=== PATIENT | male | born 1960 | race Two or more races ===

== ENCOUNTER 2025-04-02 18:33 | Inpatient (IN) | payer OTHER, MEDICAID ==
[2025-04-02] MEDS: SODIUM CHLORIDE 0.9% 1,000 ML IV SCH ×2 (00:45→21:15)
[2025-04-02] MEDS ORDERED: NITROGLYCERIN 0.4 MG SL TAB SL PRN ×3 (21:15→23:45)
[2025-04-02] MEDS ORDERED: MORPHINE SULFATE INJ 2 MG/ml SYRG IV PRN ×2 (21:15→23:45)
[2025-04-02] MEDS ORDERED: EZET10TA22 PO (21:34)
[2025-04-02] MEDS ORDERED: CLOP75TA28 PO (21:34)
[2025-04-02] MEDS ORDERED: DOCU-94 PO (21:34)
[2025-04-02] MEDS ORDERED: ASPI-543 PO (21:34)
[2025-04-02] MEDS ORDERED: FENO160T PO (21:34)
[2025-04-02] MEDS ORDERED: LEVO137T3 PO (21:34)
[2025-04-02] MEDS ORDERED: CHOL20007 PO (21:34)
[2025-04-02] MEDS ORDERED: HYDR-4902 PO (21:34)
[2025-04-02] MEDS ORDERED: METO-289 PO (21:34)
[2025-04-02] MEDS ORDERED: PANT40T PO (21:34)
[2025-04-02] MEDS ORDERED: CYCL-839 PO (21:34)
[2025-04-02] MEDS ORDERED: SIMV40TA18 PO (21:34)
[2025-04-02] MEDS ORDERED: ATOR40TA52 PO (21:34)
[2025-04-02] MEDS ORDERED: POTA-36 PO (21:34)
[2025-04-02] MEDS ORDERED: FURO40TA4 PO (21:34)
[2025-04-02 21:39] LABS: Hematocrit 42.9 % (41.0-53.0); Hemoglobin 14.1 g/dL (13.5-17.5); Mean Corpuscular Hemoglobin 29.1 pg (28.0-32.0); Mean Corpuscular Volume 88.4 fL (80.0-100.0); Nucleated Red Blood Cells % 0.0 %
[2025-04-02] MEDS ORDERED: HYDROmorphone HCL 2 MG/ML VL/or syr IV PRN (21:45)
[2025-04-02] MEDS ORDERED: HYDROcodone-ACET 5/325MG TAB PO PRN ×2 (21:45→23:45)
[2025-04-02] MEDS ORDERED: hydrALAZINE HCL 20 MG/ML VL IV PRN (21:45)
[2025-04-02] MEDS ORDERED: ONDANSETRON HCL 4 MG/2 ML VIAL IV PRN ×2 (21:45→23:45)
[2025-04-02] MEDS ORDERED: HEPARIN DRIP/D5W 100UNITS/ML 250 ML IV SCH (21:45)
[2025-04-02 21:47] VITALS: PULSE 66; RESP 20; O2SAT 96
[2025-04-02 21:48] VITALS: BP 117/62; PULSE 62; RESP 20; TEMP 98.1; O2SAT 96
[2025-04-02 21:58] LABS: Alanine Aminotransferase 25 U/L (7-40); Albumin 4.4 g/dL (3.2-4.8); Alkaline Phosphatase 67 U/L (46-116); Anion Gap 9 (5-15); BUN/Creatinine Ratio 10.7 (10.0-20.0); Blood Urea Nitrogen 13 mg/dL (9-23); Calcium 8.7 mg/dL (8.7-10.4); Carbon Dioxide 24 mmol/L (20-31); Glucose 93 mg/dL (74-106); Potassium 4.2 mmol/L (3.5-5.1); Sodium 141 mmol/L (136-145); Total Protein 8.2 g/dL (5.7-8.2)
[2025-04-02 21:59] LABS: Bilirubin, Total 0.5 mg/dL (0.2-1.0)
[2025-04-02 22:00] LABS: Chloride 108 mmol/L (98-107)
[2025-04-02] MEDS: ATORVASTATIN 20 MG TAB PO SCH (22:00)
[2025-04-02] MEDS: METOPROLOL TARTRATE 25 MG TAB PO SCH (22:00)
[2025-04-02] MEDS: LOSARTAN POTASSIUM 50 MG TAB PO SCH (22:00)
[2025-04-02 22:07] LABS: INR 1.05 (0.9-1.15); Partial Thromboplastin Time 31.0 SEC (24.5-34.5); Prothrombin Time 11.1 sec (9.3-11.8)
[2025-04-02] MEDS: ANGIOMAX 250 MG VIAL IV ONE (22:16)
[2025-04-02] MEDS: MIDAZOLAM HCL 2MG/2ML 2ml VIAL (1mg/ml) ONE (22:17)
[2025-04-02] MEDS: SODIUM CHL 0.9% 0 ML ONE (22:17)
[2025-04-02] MEDS: fentaNYL CITRATE 100 MCG/2 ML VL ONE (22:17)
[2025-04-02] MEDS: IODIXANOL 320MG/ML 100ML BTL IV ONE (22:17)
[2025-04-02] MEDS: LIDOCAINE 2%HCL (LOCAL ANESTH.) INJ 20ML MDV ONE (22:18)
[2025-04-02 23:41] VITALS: BP 115/60; PULSE 68; RESP 15; O2SAT 97
[2025-04-02] MEDS ORDERED: LORazepam 0.5 MG TAB PO PRN (23:45)
[2025-04-02] MEDS ORDERED: MORPHINE SULFATE 4 MG/ML SYR/VIAL IV PRN (23:45)
[2025-04-02] MEDS ORDERED: ZOLPIDEM TARTRATE 5 MG TAB PO PRN (23:45)
[2025-04-02] MEDS ORDERED: ACETAMINOPHEN 500 MG TAB or CAP PO PRN (23:45)
[2025-04-02 23:50] VITALS: BP 118/62; PULSE 60; RESP 15; O2SAT 97
--- NOTE | 2025-04-02 23:52 | DVH ---
INDICATION: [facility] tonight TECHNIQUE: Frontal view of the chest. COMPARISON: XR CHEST 1 VIEW on DOS: 04/01/25, XR CHEST 1 VIEW on DOS: 11/28/23 FINDINGS/IMPRESSION: The lungs are clear. There is prominence of the cardiomediastinal silhouette. There are median mitchell otomy changes. No pleural effusion or pneumothorax. No acute osseous abnormality.
[2025-04-03] VITALS (10 sets, daily range): BP systolic 99–130; BP diastolic 48–95; PULSE 56–75; RESP 15–20; TEMP 97.6–97.9; O2SAT 67–97
[2025-04-03] MEDS: LEVOTHYROXINE SODIUM 25 MCG TAB PO SCH (06:20)
[2025-04-03] MEDS: MILK OF MAGNESIA 30ML SUSP PO ONE (06:20)
[2025-04-03] MEDS: SODIUM CHLOR 0.9% PF (SALINE LOCK) 10ML VIAL/SYR IV SCH (06:32)
[2025-04-03 06:49] LABS: Anion Gap 12 (5-15); Potassium 4.2 mmol/L (3.5-5.1); Sodium 140 mmol/L (136-145)
[2025-04-03 06:55] LABS: BUN/Creatinine Ratio 8.0 (10.0-20.0); Blood Urea Nitrogen 9 mg/dL (9-23); Glucose 89 mg/dL (74-106); Triglycerides 148 mg/dL (< 150)
[2025-04-03 06:57] LABS: Cholesterol 127 mg/dL (< 200)
[2025-04-03 07:00] LABS: Calcium 8.0 mg/dL (8.7-10.4); Carbon Dioxide 20 mmol/L (20-31); Chloride 108 mmol/L (98-107); HDL Cholesterol 35 mg/dL (40-59)
[2025-04-03] MEDS: POTASSIUM CHL 10 Meq TABLET PO SCH (09:14)
[2025-04-03] MEDS: PANTOPRAZOLE 40 MG/10 ML VIAL INJ IV SCH (09:14)
[2025-04-03] MEDS: FUROSEMIDE 40 MG TAB PO SCH (09:15)
[2025-04-03] MEDS: CHOLECALCIFEROL (VITD3) 1,000UNIT=25mCg TAB PO SCH (09:27)
--- NOTE | 2025-04-03 10:00 | ECG ---
[facility] Test Date: 2025-04-02 Test Time: 22:04:47 Pat Name: MARCUS JADE Department: Room: 0294T A Gender: M Bak[employer] Dec[employer]ator: dawit : 1960 Requested By: DUANE CALLE Order Number: [id number] Reading MD: Elijah Vizcarra Measurements Intervals [place] Rate: 76 P: 61 AR: 147 QRS: -59 QRSD: 168 T: 67 QT: 457 QTc: 514 Interpretive Statements Sinus rhythm Ventricular premature complex Right bundle branch block Baseline wander in lead(s) II,III,aVF Electronically Signed On 04-04-2025 15:29:30 PDT by Elijah Vizcarra Please click the below link to view image of tracing.
--- NOTE | 2025-04-03 20:16 | DVHINCON2 ---
Date of service: Apr 02, 2025 Reason for Consultation NSTEMI History of Present Illness This is a 64-year-old male with a PMH of HTN, [place] x4, CHF who initially presented [facility] with complaints of chest pain that began with associated shortness of breath. The patient was found to have NSTEMi and was transferred here for continuation of care. Allergies: Coded Allergies: NO KNOWN ALLERGIES (Unverified , 04/02/25) Home Meds Reported Medications Simvastatin (Simvastatin) 40 Mg Tab, 1 TAB PO QPM, #30 TAB 5 Refills 04/02/25 Pantoprazole Sodium Sesquihydr (Pantoprazole Sodium) 40 Mg Tab, 40 MG PO, TAB 04/02/25 Metoprolol Succinate (Metoprolol Succinate Er) 50 Mg Tab, 1 TAB PO DAILY, #30 TAB 5 Refills 04/02/25 Levothyroxine Sodium (Levothyroxine Sodium) 137 Mcg Tab, 137 MCG PO QAM for 30 Days 04/02/25 Clopidogrel Bisulfate (Plavix) 75 Mg Tab, 1 TAB PO DAILY, #90 TAB 1 Refill 04/02/25 Fenofibrate (Fenofibrate) 160 Mg Tab, 1 TAB PO DAILY, #30 TAB 5 Refills 04/02/25 Ezetimibe (Zetia) 10 Mg Tab, 1 TAB PO DAILY, #30 TAB 5 Refills 04/02/25 Cyclobenzaprine Hcl (Cyclobenzaprine Hcl) 10 Mg Tab, 10 MG PO BID for 30 Days, MG 04/02/25 Docusate Sodium (Colace) 100 Mg Cap, 100 MG PO, CAP 04/02/25 Hydrocodone-Acetaminophen (Hydrocodone Bitartrate/AC 5-325 mg) 1 Tab Tab, 1 TAB PO Q6HPRN PRN for PAIN SCALE 1 THRU 6, TAB 04/02/25 Potassium Chloride (POTASSIUM CHLORIDE CR) 10 Meq Tb, 1 TAB PO DAILY, #30 TAB 5 Refills 04/02/25 Furosemide (Furosemide) 40 Mg Tab, 40 MG PO DAILY for 30 Days 04/02/25 Cholecalciferol (VITAMIN D3) 2,000 Unit Tab, 1 TAB PO DAILY, #30 TAB 5 Refills 04/02/25 Atorvastatin Calcium (ATORVASTATIN CALCIUM) 40 Mg Tab, 1 TAB PO HS, #30 TAB 5 Refills 04/02/25 Aspirin (Aspir-Low) 81 Mg Tab, 81 MG PO DAILY for 30 Days, MG 04/02/25 Current Medications Current Medications Medications (Trade) Dose Ordered Sig/Tip Route PRN Reason Start Time Stop Time Status Last Admin Nitroglycerin (Ntrostat Sublingual) 0.4 mg Q5MINP PRN SL FOR CHEST PAIN 04/02/25 21:15 UNV Morphine Sulfate 2 mg Q30M PRN IV FOR CHEST PAIN 04/02/25 21:15 UNV Sodium Chloride 1,000 ml @ 50 mls/hr Q20H IV 04/02/25 21:15 UNV Review of Systems All other systems reviewed and negative: Chest pain Physical Exam GENERAL: Alert and oriented x 3. No acute distress. EYES: PERRL, EOMI. Anicteric. HENT: Moist mucous membranes. LUNGS: Clear to auscultation bilaterally. CARDIOVASCULAR: Regular rate and rhythm. ABDOMEN: Soft, nontender and nondistended. EXTREMITIES: No edema. NEUROLOGIC: No focal neurological deficits. SKIN: Warm, dry. Labs/Diagnostic Data Labs Test 04/02/25 21:32 Range/Units White Blood Count 10.3 4.4-10.8 10^3/uL Red Blood Count 4.85 4.5-5.90 10^6/uL Hemoglobin 14.1 13.5-17.5 g/dL Hematocrit 42.9 41.0-53.0 % Mean Corpuscular Volume 88.4 80.0-100.0 fL Mean Corpuscular Hemoglobin 29.1 28.0-32.0 pg Mean Corpuscular Hemoglobin Concent 32.9 32.0-36.0 g/dL Red Cell Distribution Width 15.2 H 11.8-14.3 % Platelet Count 280 140-450 10^3/uL Mean Platelet Volume 7.5 6.9-10.8 fL Neutrophils (%) (Auto) 51.1 37.0-80.0 % Lymphocytes (%) (Auto) 35.7 10.0-50.0 % Monocytes (%) (Auto) 7.6 0.0-12.0 % Eosinophils (%) (Auto) 4.8 0.0-7.0 % Basophils (%) (Auto) 0.8 0.0-2.0 % Neutrophils # (Auto) 5.3 1.6-8.6 10 ^3/uL Lymphocytes # (Auto) 3.7 0.4-5.4 10 ^3/uL Monocytes # (Auto) 0.8 0-1.3 10 ^3/uL Eosinophils # (Auto) 0.5 0-0.8 10 ^3/uL Basophils # (Auto) 0.1 0-0.2 10 ^3/uL Nucleated Red Blood Cells 0.0 % Assessment NSTEMI. HTN. History of [place] x4. CHF. Plan/Recommendation I agree with your ongoing assessment and care of plan. Emergency left heart cath, risks and benefits were discussed with the patient. Diuretics with Lasix. Aspirin, Lipitor, Metoprolol. Losartan. IV Hydralazine for SBP >150. Heparin drip per protocol. Dilaudid and [place] for pain management. Additional plan as per the hospital course. A total of 45 minutes was spent reviewing the patient record, examining the patient, making a diagnostic and therapeutic plan, discussing this plan with medical personnel, following up on diagnostic studies and following the patient for clinical stability excluding any and all procedures. At least 50% of this time was spent in direct, [id number] contact. Plan discussed with: Patient DUANE CALLE MD Apr 02, 2025 21:43
--- NOTE | 2025-04-03 20:17 | DVHPN2 ---
Progress Note - Dictate Date Seen: Apr 03, 2025 Medical Necessity Reason Pt with a Central, PICC or Fol: No Subjective Patient was seen and evaluated in follow up. Patient is s/p C, pending final report. TROP 392 > 401 > 317. I have advised for the patient to follow up with me in my office tomorrow at 4:30pm Telemetry reviewed. vital signs Vital Sign Date Time Temp Pulse Resp B/P (MAP) Pulse Ox O2 Delivery O2 Flow Rate FiO2 04/03/25 09:15 106/62 04/03/25 09:14 63 04/03/25 09:00 97.6 20 95 97.6 04/03/25 07:30 Room Air* 0 21 Total Intake and Output 04/02/25 04/02/25 04/03/25 15:00 23:00 07:00 Intake Total 1000 ml Balance 1000 ml medications Current Medications Medications Dose Ordered Sig/Tip Route Start Time Stop Time Status Last Admin Dose Admin Nitroglycerin 0.4 mg Q5MINP PRN SL 04/02/25 21:15 Morphine Sulfate 2 mg Q30M PRN IV 04/02/25 21:15 Sodium Chloride 1,000 ml @ 50 mls/hr Q20H IV 04/02/25 21:15 04/03/25 06:20 50 MLS/HR Levothyroxine Sodium 25 mcg QAM@0600 PO 04/03/25 06:00 04/03/25 06:20 25 MCG Losartan Potassium 50 mg BID PO 04/02/25 22:00 04/03/25 09:15 50 MG Metoprolol Tartrate 25 mg BID PO 04/02/25 22:00 04/03/25 09:14 25 MG Pantoprazole Sodium 40 mg DAILY IV 04/03/25 10:00 04/03/25 09:14 40 MG Aspirin 81 mg DAILY PO 04/03/25 10:00 04/03/25 09:14 81 MG Atorvastatin Calcium 40 mg HS PO 04/02/25 22:00 Cholecalciferol 2,000 unit DAILY PO 04/03/25 10:00 04/03/25 09:27 2,000 UNIT Furosemide 40 mg DAILY PO 04/03/25 10:00 04/03/25 09:15 40 MG Hydralazine HCl 10 mg Q4HP PRN IV 04/02/25 21:45 Potassium Chloride 10 meq DAILY PO 04/03/25 10:00 04/03/25 09:14 10 MEQ Acetaminophen/ Hydrocodone Bitart 1 tab Q6HPRN PRN PO 04/02/25 21:45 Hydromorphone HCl 0.5 mg Q4HPRN PRN IV 04/02/25 21:45 Ondansetron HCl 4 mg Q4HPRN PRN IV 04/02/25 21:45 Sodium Chloride 10 ml Q8HR IV 04/03/25 06:00 04/03/25 06:32 10 ML Nitroglycerin 0.4 mg Q5MP PRN SL 04/02/25 23:45 Acetaminophen/ Hydrocodone Bitart 1 tab Q4HP PRN PO 04/02/25 23:45 Zolpidem Tartrate 5 mg QHSP PRN PO 04/02/25 23:45 Lorazepam 0.5 mg Q6HP PRN PO 04/02/25 23:45 Ondansetron HCl 4 mg Q4HP PRN IV 04/02/25 23:45 Acetaminophen 500 mg Q6HP PRN PO 04/02/25 23:45 Morphine Sulfate 1 mg Q4HP PRN IV 04/02/25 23:45 Nitroglycerin 0.4 mg Q5MINP PRN SL 04/02/25 23:45 Morphine Sulfate 2 mg Q30M PRN IV 04/02/25 23:45 objective GENERAL: Alert and oriented x 3. No acute distress. EYES: PERRL, EOMI. Anicteric. HENT: Moist mucous membranes. LUNGS: Clear to auscultation bilaterally. CARDIOVASCULAR: Regular rate and rhythm. ABDOMEN: Soft, nontender and nondistended. EXTREMITIES: No edema. NEUROLOGIC: No focal neurological deficits. SKIN: Warm, dry. laboratory and microbiology Laboratory Tests 04/03/25 05:40 04/02/25 21:32 Test 04/03/25 05:40 Range/Units Serum Glucose 89 74-106 mg/dL Problem List NSTEMI. HTN. [place] x4. CHF. Assessment/Plan Continued all current supportive medical care. Diuretics with Lasix. Aspirin, Metoprolol. Losartan. IV Hydralazine for SBP >150. Dilaudid and [place] for pain management. Additional plan as per the hospital course. Plan discussed with: Patient DUANE CALLE MD Apr 03, 2025 13:28
--- NOTE | 2025-04-04 04:56 | DVHOP ---
DATE OF SURGERY: 04/02/2025 TECHNIQUE PERFORMED: * Emergency case. * Ultrasound of the right femoral artery. * Management of conscious sedation. * Ultrasound and fluoroscopic-guided insertion of a 6-Trin[place] arterial line in the right femoral artery. * Left heart cath. * Left ventriculogram. * [place] selective left and right coronary artery angiography. * Venous bypass graft angiography to obtuse marginal artery. * Left subclavian angiography. * Left internal mammary artery angiography. * Right iliofemoral artery angiography. * Arteriotomy and Angio-Seal of the right femoral artery. ASSISTANTS: Assisted by Meri Betancourt Josue and Cristin. INDICATIONS: The patient was transferred from [facility]. The patient has an underlying history of bypass graft surgery, 03/18 chest pain. Troponin went up to. The patient has a history of balloon angioplasty and stenting. DESCRIPTION OF PROCEDURE: Risks and benefits discussed. Counseling done, questions answered, and brought to our laborer laboratory. The right groin was shaved, cleaned with soap and Betadine. Intravenous fentanyl was given. A 6-[place] arterial line was placed after doing the ultrasound and JL4 with the help of JL4 catheter, the right angio performed. With the help of similar catheter, we did bypass graft angiography to obtuse marginal artery also obtained. angiography done. A glidewire was passed, exchanged. Left internal mammary angiography was done. Subsequently, with the pigtail catheter complete left heart catheter also had been done. The left ventriculogram was done in the right anterior oblique view with a total of 20 mL of dye. Post-LV gram, left ventricular angiography had been performed with the help of pull-through technique. Aortic pressure was also performed. J-wire was passed. Pigtail catheter also had been discontinued. Procedure completed. Right iliofemoral artery angiogram done to do Angio-Seal, procedure went well. IMPRESSION: * Left main is normal. and circumflex artery. * There is left circumflex artery also occluded at the proximal region, gradual filling of the circumflex artery with the help of the collaterals and also filling of the obtuse marginal artery faintly has been noted. * There is right coronary artery, it is a large dominant artery and is widely open. The posterior descending artery also faintly retrogradely filling up the obtuse marginal branch and also filling of the obtuse marginal artery retrogradely. * The patient angiography to obtuse marginal artery is 100% occluded left anterior descending artery had been widely open. been noted, supplying also diagonal artery retrogradely, diagonal artery [place] in the mid region, narrow 99%. * The ejection fraction of the left ventricle is 55%. CONCLUSION: * bypass graft of the obtuse marginal artery and there was no occlusion. * There is [place] circumflex and the obtuse marginal branch is 100% occluded. There is also collateral branches have been filling up the circumflex and obtuse marginal artery into anterior retrogradely. The posterior descending artery also filling up retrogradely the obtuse marginal branch. * The left internal mammary artery also filling up the obtuse marginal artery faintly. * Ejection fraction is 55%. PLAN OF ACTION: Advised for conservative medical treatment. Yong Gonzáles MD MP/DORI/HERSON TID: [id number] RECEIPT: [id number]
== END 2025-04-03 15:17 | disposition home or self-care (01) | DRG 282 ==
LOC: OVERFLOW 20:20 → TELE-WESTW 20:20 → UNDOADMIN 20:20
PROVIDERS: ADMIT Specialist; ATTEND Specialist
PROC: 04HY32Z Insertion of Monitoring Device into Lower Artery, Percutaneous Approach (ICD-10-PCS; principal; 2025-04-02)
PROC: 4A023N7 Measurement of Cardiac Sampling and Pressure, Left Heart, Percutaneous Approach (ICD-10-PCS; 2025-04-02)
PROC: B211YZZ Fluoroscopy of Multiple Coronary Arteries using Other Contrast (ICD-10-PCS; 2025-04-02)
PROC: B215YZZ Fluoroscopy of Left Heart using Other Contrast (ICD-10-PCS; 2025-04-02)
PROC: B212YZZ Fluoroscopy of Single Coronary Artery Bypass Graft using Other Contrast (ICD-10-PCS; 2025-04-02)
PROC: B41FYZZ Fluoroscopy of Right Lower Extremity Arteries using Other Contrast (ICD-10-PCS; 2025-04-02)
PROC: B312YZZ Fluoroscopy of Left Subclavian Artery using Other Contrast (ICD-10-PCS; 2025-04-02)
PROC: B218YZZ Fluoroscopy of Left Internal Mammary Bypass Graft using Other Contrast (ICD-10-PCS; 2025-04-02)
DX: I21.4 Non-ST elevation (NSTEMI) myocardial infarction (principal); I50.9 Heart failure, unspecified; I11.0 Hypertensive heart disease with heart failure; I25.10 Atherosclerotic heart disease of native coronary artery without angina pectoris; I25.2 Old myocardial infarction; Z79.899 Other long term (current) drug therapy
CPT/HCPCS: 36415; 71045; 80048; 80053; 80061; 83036; 84484; 85025; 85610; 85730; 93005; 93459; 96360; 99152; G0378; J2250; J2470; Q9967